=== PATIENT | male | born 1960 | race Caucasian/White ===

== ENCOUNTER 2019-03-13 06:24 | Day surgery (SDC) | payer MEDICAID ==
[2019-03-13] MEDS ORDERED: COMBIGAN OPHT DR5 ML EACH EYE (07:10)
[2019-03-13] MEDS ORDERED: OMEPRAZOLE20 M1 PO (07:11)
[2019-03-13 07:20] VITALS: BP 130/83; BMI 22.1
--- NOTE | 2019-03-13 09:19 | NUR ---
NOTED LARGE RED BUMPY RASH ON PUBIS, ABOUT SIZE OF A SALAD PLATE, DR LECHUGA NOTIFIED, ALSO HAS SOME IRRITATION CHAPPED AREAS AROUND SCROTAL [place].
--- NOTE | 2019-03-13 10:39 | NUR ---
REC'D FROM RR. FAMILY AT BEDSIDE. DROWSY. AROUSES TO VERBAL STIMULI. ORANGE JUICE BROUGHT TO PT.
--- NOTE | 2019-03-13 11:10 | NUR ---
SITTING UP IN BED EATING FL TRAY. FAMILY AT BEDSIDE.
--- NOTE | 2019-03-13 11:40 | NUR ---
AWAKE. SITTING UP IN BED. STILL NO URGE TO VOID. FAMILY AT BEDSIDE.
--- NOTE | 2019-03-13 12:35 | NUR ---
AMBULATED TO BATHROOM AND VOIDED WITHOUT DIFFICULTY.
--- NOTE | 2019-03-13 12:50 | NUR ---
IV DC'D WITH CATHETER INTACT. WRITTEN AND VERBAL DC INST. GIVEN TO PT ALONG WITH RX. VERBALIZED UNDERSTANDING.
--- NOTE | 2019-03-13 13:00 | NUR ---
DC'D HOME WITH FAMILY VIA PRIVATE VEHICLE. TAKEN TO VEHICLE VIA WC. STABLE AT TIME OF DC.
--- NOTE | 2019-04-02 15:31 | OP ---
PATIENT NAME: JESSIE GREENBERG MEDICAL RECORD: [id number] :64 LOCATION:D.[facility] ADMISSION DATE: SURGEON: ARCHIE LECHUGA MD DATE OF OPERATION: 03/13/2019 PREOPERATIVE DIAGNOSES: 1. Intractably symptomatic external hemorrhoids. 2. Internal hemorrhoidal bleeding. POSTOPERATIVE DIAGNOSES: 1. Intractably symptomatic external hemorrhoids. 2. Internal hemorrhoidal bleeding. PROCEDURE: 1. Procedure for prolapse and hemorrhoids. 2. Ligation of internal hemorrhoidal bundles times 6. SURGEON: Archie Lechuga MD ROLLER SETTER: None. BLOOD LOSS: Less than 50 cc. ANESTHESIA: General. COMPLICATIONS: None. OPERATIVE COURSE: The patient was conveyed to the operating room electively on 03/13/2019. General anesthesia was induced by the anesthesia staff. The patient was placed in the lithotomy position. The buttocks were taped laterally. U-shaped anal retractors were inserted. I noted no evidence of anal fissure. No evidence of an anal fistula. The PPH dilator retractor was placed and the retractor was sewn to the surrounding anoderm with 2-0 silk sutures. A mucosal pursestring suture of 2-0 Prolene was applied 1 cm cephalad to the clear retractor. The PPH stapling device was inserted with the anvil cephalad to the pursestring suture, which was then tightened and tied. The stapling device was engaged. It was then fired. The stapling device was removed. There was an entire donut of lower rectal and internal hemorrhoidal tissue within the stapling device. Bleeding along the anastomotic staple line was controlled with [id number] 3-0 Vicryls. After the procedure for prolapse and hemorrhoids, there was still significant enlargement of 6 hemorrhoidal bundles. These were all ligated with [id number] 3-0 Vicryl sutures. A combination of Marcaine and steroid preparation were used to infiltrate the perianal tissues. Gelfoam was placed within the anus and lower rectum. A topical anesthetic ointment was applied to the external hemorrhoids. The patient was then extubated and conveyed to post-anesthesia care unit. He is going to be dismissed home with Valium for anal muscle spasms as well as hydrocodone and Colace. I will see him in the office in 2-3 weeks. TRANSINT:[id number] Voice Confirmation ID: [id number] DOCUMENT ID: [id number] OPERATIVE REPORT [id number] JESSIE GREENBERG, ARCHIE BORJA at 1531 CC: [id number] DICTATION DATE: 04/02/19 1154 NET DEVELOPER: 04/02/19 1336 [facility] 03/13/19 [place] [id number] [place] [id number]
== END 2019-03-13 13:00 | disposition home or self-care (01) ==
LOC: D.OPS 06:24 → D.PAN 10:15 → D.OPS 10:15
PROVIDERS: ATTEND Surgery
DX: K64.8 Other hemorrhoids (principal)